=== PATIENT | male | born 1970 | race Caucasian/White ===

== ENCOUNTER 2023-01-19 18:10 | Emergency (ER) | payer MEDICAID, OTHER ==
[~2023-01-19] VITALS: Ht 180.3 cm; Wt 77.1 kg
[2023-01-19 18:29] VITALS: BP 140/90; PULSE 69; RESP 20; TEMP 98.4; O2SAT 100
[2023-01-19 19:33] LABS: BASOPHILS # (AUTO) 0.1 K/uL (0.00-0.22); BASOPHILS % (AUTO) 1.7 % (0.0-2.0); EOSINOPHILS # (AUTO) 0.2 K/uL (0-0.4); EOSINOPHILS % (AUTO) 2.8 % (0.0-4.0); HEMATOCRIT 29.4 % (36-52); HEMOGLOBIN 8.5 g/dL (12.0-18.0); LYMPHOCYTES # (AUTO) 1.3 K/uL (2.0-11.5); LYMPHOCYTES % (AUTO) 20.9 % (20.5-51.1); MEAN CORPUSCULAR HEMOGLOBIN 18 pg (27-31); MEAN CORPUSCULAR HGB CONC 29 g/dL (33-37); MEAN CORPUSCULAR VOLUME 62.6 fL (80-94); MONOCYTES # (AUTO) 0.9 K/uL (0.8-1.0); MONOCYTES % (AUTO) 14.6 % (1.7-9.3); NEUTROPHILS # (AUTO) 3.7 K/uL (1.8-7.7); PLATELET COUNT (AUTO) 554 K/uL (140-450); RED BLOOD CELL COUNT(AUTO) 4.69 MIL/uL (4.20-6.10); RED CELL DISTRIBUTION WIDTH 19.5 % (11.6-13.7); WHITE BLOOD COUNT (AUTO) 6.2 K/uL (4.8-10.8)
[2023-01-19 19:48] LABS: ALBUMIN 3.9 g/dL (3.4-5.0); ANION GAP 16.1 (8-16); CARBON DIOXIDE 24.7 mmol/L (21-32); CREATININE 1.1 mg/dL (0.6-1.3); POTASSIUM 3.8 mmol/L (3.5-5.1); TOTAL BILIRUBIN 0.3 mg/dL (0.0-1.0)
[2023-01-19 20:22] VITALS: BP 140/90; PULSE 69; RESP 20; TEMP 98.4; O2SAT 100
--- NOTE | 2023-01-19 20:22 | NUR ---
Patient discharged with v/s stable. Written and verbal after care instructions given and explained. Patient verbalized understanding. Ambulatory with steady gait. All questions addressed prior to discharge. Advised to follow up with PMD.
== END 2023-01-19 20:22 | disposition home or self-care (01) ==
LOC: MED 18:10
DX: T67.5XXA Heat exhaustion, unspecified, initial encounter (principal); E86.0 Dehydration; F10.20 Alcohol dependence, uncomplicated; Y90.9 Presence of alcohol in blood, level not specified; X30.XXXA Exposure to excessive natural heat, initial encounter; Y93.89 Activity, other specified; Y92.89 Other specified places as the place of occurrence of the external cause; Y99.8 Other external cause status
CPT/HCPCS: 36415; 80053; 85025; 99283

== ENCOUNTER 2023-01-29 09:06 | Emergency (ER) | payer MEDICAID, OTHER ==
[~2023-01-29] VITALS: Ht 180.3 cm; Wt 78.6 kg
[2023-01-29 09:08] VITALS: BP 153/87; PULSE 107; RESP 20; TEMP 98.1; O2SAT 100
[2023-01-29] MEDS ORDERED: KETO120S5 TP (10:44)
[2023-01-29] MEDS ORDERED: ATA25 PO (10:44)
[2023-01-29 11:27] VITALS: BP 152/85; PULSE 99; RESP 18; TEMP 97.7; O2SAT 100
--- NOTE | 2023-01-29 11:27 | NUR ---
Patient discharged with v/s stable. Written and verbal after care instructions given and explained. Patient alert, oriented and verbalized understanding of instructions. Ambulatory with steady gait. All questions addressed prior to discharge. ID band removed. Patient advised to follow up with PMD. Rx of atarax,ketoconazole given. Patient educated on indication of medication including possible reaction and side effects. Opportunity to ask questions provided and answered.
== END 2023-01-29 11:27 | disposition home or self-care (01) ==
LOC: MED 09:06
DX: B35.0 Tinea barbae and tinea capitis (principal); F41.9 Anxiety disorder, unspecified; Z79.899 Other long term (current) drug therapy
CPT/HCPCS: 99283